=== PATIENT | female | born 1930 | race Caucasian/White ===

== ENCOUNTER 2019-05-08 13:11 | Observation (INO) | payer MEDICARE ==
--- NOTE | 2019-05-08 13:30 | ED ---
Neurological HPI - HPI Summary HPI Summary: 89 year old presents to the ED with a chief complaint of back pain starting 3 days ago. THIS IS A LEVEL 5 CAVEAT, PATIENT IS A POOR HISTORIAN. Per , patient has not been at baseline for the past 3 days. She has not been 100% alert or oriented, has not had a bowel movement, and has had back pain. Per EMS , patient had left sided weakness and facial droop. EMS gave patient aspirin but she refused NTG. Per EMS, O2 89 on arrival. Patient has a history of low blood pressure. No history of HLD or DM. Family history of cancer. - History of Current Complaint Stated Complaint: R/O STROKE R/O HEARTATTACK PER EMS Hx Obtained From: Patient, EMS Onset/Duration: Started days ago, Still Present Timing: Constant Neurological Deficit Location: Facial, LUE Character: Confusion Associated Signs and Symptoms: Positive: Confusion, Pain - back pain, AMS - confused - Allergy/Home Medications Allergies/Adverse Reactions: Allergies Allergy/AdvReac Type Severity Reaction Status Date / Time No Known Allergies Allergy Verified 05/08/19 14:01 Home Medications: Home Medications NK [No Home Medications Reported] 05/08/19 [History Confirmed 05/08/19] PMH/Surg Hx/FS Hx/Imm Hx Cardiovascular History: Reports: Hx Hypotension Review of Systems Positive: Other - No bm for 3 days Positive: Myalgia - back pain Positive: Weakness - left sided Positive: Other - confused All Other Systems Reviewed And Are Negative: No Physical Exam - Summary Physical Exam Summary: VITAL SIGNS: Reviewed. GENERAL: Patient is a thin female who is lying comfortable in the stretcher. Patient is not in any acute respiratory distress. She is alert but not oriented. She is unable to give history. HEAD AND FACE: No signs of trauma. No ecchymosis, hematomas or skull depressions. No sinus tenderness. EYES: PERRLA, EOMI x 2, No injected conjunctiva, no nystagmus. EARS: Hearing grossly intact. MOUTH: Oropharynx within normal limits. NECK: Supple, trachea is midline, no adenopathy, no JVD, no carotid bruit, no c- spine tenderness, neck with full ROM. CHEST: Symmetric, no tenderness at palpation LUNGS: Clear to auscultation bilaterally. decreased breath sounds CVS: Regular rate and rhythm, S1 and S2 present, no murmurs or gallops appreciated. ABDOMEN: Soft, non-tender. No signs of distention. No rebound no guarding. EXTREMITIES: FROM in all major joints, no edema, no cyanosis or clubbing. NEURO: Alert but not oriented. confusion. Does not follow commands SKIN: Dry and warm Triage Information Reviewed: Yes Vital Signs Reviewed: Yes Procedures - Sedation Patient Received Moderate/Deep Sedation with Procedure: No Diagnostics - Laboratory Result Diagrams: 05/08/19 13:30 05/08/19 13:29 Lab Statement: Any lab studies that have been ordered have been reviewed, and results considered in the medical decision making process. - Radiology CXR Radiology Interpretation Completed By: Radiologist Summary of Radiographic Findings: IMPRESSION: CARDIOMEGALY WITH INTERSTITIAL EDEMA. An ED physician has reviewed this report. - CT Brain CT CT Interpretation Completed By: Radiologist Summary of CT Findings: IMPRESSION: 1. NO ACUTE INTRACRANIAL PATHOLOGY. 2. DIFFUSE INVOLUTIONAL CHANGE WITH CHRONIC SMALL VESSEL ISCHEMIC CHANGES. 3. MILD SINUS MUCOSAL INFLAMMATORY DISEASE, WITH AN AIR-FLUID LEVEL IN THE LEFT MAXILLARY SINUS. IN THE CORRECT CLINICAL SETTING, THIS MAY REPRESENT ACUTE SINUSITIS. 4. LEFT MASTOID EFFUSION. An ED physician has reviewed this report. AP CT CT Interpretation Completed By: Radiologist Summary of CT Findings: ABDOMEN PELVIS IMPRESSION: 1. Negative for aneurysm or dissection of the abdominal aorta. Bilateral iliac artery stenoses as described. 2. The L1 vertebral body is remarkable for a probable acute or subacute mild anterior column compression fracture with cortical disruption and trabecular impaction. Negative for involvement of the middle column/spinal canal. An ED physician has reviewed this report. Chest CT CT Interpretation Completed By: Radiologist Summary of CT Findings: CHEST IMPRESSION: 1. Negative for aneurysm or dissection of the thoracic aorta. 2. Small bilateral dependent pleural effusions likely secondary to mild interstitial pulmonary edema. An ED physician has reviewed this report. - EKG 1344 Cardiac Rate: Bradycardia - 56 bpm EKG Rhythm: Sinus Bradycardia Summary of EKG Findings: EKG at 1344 shows sinus bradycardia at [address] elevations. Normal axis. An ED physician has reviewed and interpreted this EKG. NIH Scale - NIH Scale Level of Consciousness: Alert/Keenly Responsive Ask Patient the Month and His/Her Age: Neither Correct/Aphasic Ask Pt to Open/Close Eyes and Market Reporter/Release Non-Paretic Hand: Neither Correctly Best Gaze (Only Horizontal Eye Movement): Normal Visual Field Testing: No Visual Loss Facial Paresis-Pt to Smile & Close Eyes or Grimace Symmetry: Normal/Symmetrical Motor Function - Right Arm: No Drift-Holds 10 Seconds Motor Function - Left Arm: No Drift-Holds 10 Seconds Motor Function - Right Leg: No Drift-Holds 10 Seconds Motor Function - Left Leg: No Drift-Holds 10 Seconds Limb Ataxia-Must be out of Proportion to Weakness Present: Absent Sensory (Use Pinprick to Test Arms/Legs/Trunk/Face): Normal Best Language (Describe Picture, Name Items): Some Loss Dysarthria (Read Several Words): Normal Extinction and Inattention: No Abnormality Total Score: 5 Course/Dx - Course Assessment/Plan: 89 year old presents to the ED with a chief complaint of back pain starting 3 days ago. Per , patient has not been at baseline for the past 3 days. She has not been 100% alert or oriented, has not had a bowel movement, and has had back pain. Per EMS, patient had left sided weakness and facial droop. EMS gave patient aspirin but she refused NTG. Per EMS, O2 89 on arrival. Blood work without any significant abnormality except for glucose of 105, alkaline phosphatase is 105, troponin is 0.14. EKG shows a sinus bradycardia without any ST elevations, normal axis. Head CT impression: No acute pathology. Chest x-ray impression: Cardiomegaly with interstitial edema. Patient was given aspirin by EMS. At this time I discussed my physical exam and findings with Dr. Ba from the hospital services, who accepts the patient for admission. Urinalysis: positive for UTI - Differential Dx Differential Diagnoses Neuro: Positive: Carbon Monoxide Poisoning, Cerebrovascular Accident, Transient Ischemic Attack, Other - UTI - Diagnoses Provider Diagnoses: AMS (altered mental status), Elevated troponin I level, UTI (urinary tract infection) Is Visit Related: No - Physician Notifications Discussed Care Of Patient With: Gloria Ba - hospitalist Time Discussed With Above Provider: 15:03 Instructed by Provider To: Admit As Observation - I spoke to Dr. Ba who admits the patient for observation. Admit/Transition Orders Completed By ED Provider: Yes Discharge ED - Sign-Out/Discharge Documenting (check all that apply): Patient Departure - admit All imaging exams completed and their final reports reviewed: Yes - Discharge Plan Condition: Stable Disposition: ADMITTED TO [facility] - Billing Disposition and Condition Condition: STABLE Disposition: Admitted to [facility] - Attestation Statements Document Initiated by Scribe: Yes Documenting Scribe: Barber Cuevas Provider For Whom Huma is Documenting (Include Credential): Dieter Keene MD Scribe Attestation: Barber Longo, scribed for Dieter Keene MD on 05/08/19 at 2125. Scribe Documentation Reviewed: Yes Provider Attestation: The documentation as recorded by the scribeBarber accurately reflects the service I personally performed and the decisions made by me, Dieter Keene MD Status of Scribe Document: Viewed
[2019-05-08 13:41] LABS: ABS Lymphocytes 0.8 10^3/ul (1.0-4.8); ABS Monocytes 0.5 10^3/ul (0-0.8); ABS Neutrophils 5.6 10^3/ul (1.5-7.7); Eosinophil % 0.3 %; Hematocrit 44 % (35-47); Hemoglobin 14.6 g/dL (12.0-16.0); Lymphocyte % 11.3 %; Mean Corpuscular HGB Conc 34 g/dL (31-36); Mean Corpuscular Hemoglobin 33 pg (27-31); Mean Corpuscular Volume 97 fL (80-97); Mean Platelet Volume 8.7 fL (7.4-10.4); Platelet Count 282 10^3/uL (150-450); Red Blood Count 4.49 10^6 /uL (3.70-4.87); Red Cell Distribution Width 14 % (10-15)
[2019-05-08 13:47] LABS: INR 0.95 (0.82-1.09)
[2019-05-08 13:58] LABS: ALT 14 U/L (7-52); AST 25 U/L (13-39); Albumin 3.7 g/dL (3.2-5.2); Albumin/Globulin Ratio 1.3 (1-3); Alkaline Phosphatase 105 U/L (34-104); Anion Gap 6 mmol/L (2-11); BUN/Creatinine Ratio 21.3 (8-20); Blood Urea Nitrogen 17 mg/dL (6-24); CO2 Carbon Dioxide 26 mmol/L (22-32); Calcium 10.1 mg/dL (8.6-10.3); Chloride 105 mmol/L (101-111); Creatine Kinase 92 U/L (10-223); EGFR African American 82.1 (>60); EGFR Non-African American 67.8 (>60); Globulin 2.9 g/dL (2-4); Glucose 105 mg/dL (70-100); Magnesium 2.1 mg/dL (1.9-2.7); Potassium 4.2 mmol/L (3.5-5.0); Sodium 137 mmol/L (135-145); Total Protein 6.6 g/dL (6.4-8.9)
[2019-05-08 14:02] LABS: Troponin I 0.14 ng/mL (<0.03)
[2019-05-08 14:22] LABS: Acetaminophen < 15 mcg/mL; Alcohol < 10 mg/dL (<10)
[2019-05-08 14:37] LABS: TSH (Thyroid Stimulating Horm) 3.52 mcIU/mL (0.34-5.60)
[2019-05-08] MEDS ORDERED: Iohexol 350* (CONTRAST) 500 ML MDV IV ONE (15:55)
[2019-05-08] MEDS ORDERED: Ondansetron INJ* 2 MG/ML VIAL IV PRN (16:11)
[2019-05-08] MEDS ORDERED: Acetaminophen TAB* 325 MG PO PRN (16:11)
[2019-05-08] MEDS ORDERED: NS 0.9% 1000 ML** 1,000 ML IV SCH (16:15)
[2019-05-08] MEDS ORDERED: Enoxaparin(*) 40 MG/0.4 ML SYR SUBCUT SCH (17:00)
[2019-05-08 17:10] LABS: Cholesterol 186 mg/dL; HDL Cholesterol 38.6 mg/dL; LDL Cholesterol 122 mg/dL; Triglycerides 127 mg/dL
[2019-05-08 17:14] LABS: Troponin I 0.11 ng/mL (<0.03)
[2019-05-08 18:47] LABS: Urine Appearance Turbid; Urine Bilirubin Negative (Negative); Urine Blood 1+ (Negative); Urine Color Yellow; Urine Glucose Negative (Negative); Urine Ketones Negative (Negative); Urine Nitrite Positive (Negative); Urine Protein Negative (Negative); Urine Specific Gravity 1.045 (1.010-1.030); Urine Urobilinogen Negative (Negative)
[2019-05-08 18:55] LABS: Urine Bacteria 1+ (Absent); Urine Red Blood Cell 3+(>10/hpf) (Absent); Urine Squamous Epithelial Cell Present (Absent); Urine White Blood Cell 3+(>20/hpf) (Absent)
--- NOTE | 2019-05-08 20:05 | HP ---
ADDENDUM NOW INCLUDED ON THIS REPORT ADMISSION HISTORY AND PHYSICAL: DATE OF ADMISSION: 05/08/19 PROVIDER: Aurelia Hanley NP ATTENDING PHYSICIAN: Dr. Haile.* (DICTATED BY AURELIA HANLEY NP) PRIMARY CARE PROVIDER: Dr. Andrade in [place]. SURROGATE: Her , Shane Smith. CHIEF COMPLAINT: Back pain. HISTORY OF PRESENT ILLNESS: This is an 89-year-old female with a past medical history significant for dementia and AFib, who was brought to the emergency room on 05/08/19 via EMS due to the inability to get out of bed this a.m. This is a woman with advanced dementia who lives at home with her , who is her primary automatic clipper. He noticed that with movement 3 days ago, she would wince and grimace in pain, unable to verbalize exactly where her pain was, though has been able to walk around. Typically, when she is feeling well, she is able to walk without any assistive device, though does not walk much. Typically, she stays in her recliner chair for 12 to 14 hours a day watching TV. Her noticed that 2 nights ago she was crying in pain, which is unusual for her and then this morning she was unable to get out of bed or bear weight. When EMS was called, they thought that they noted a left-sided facial droop with weakness. Her NIH Stroke Score was 5 upon arrival. However, when asked, the stated that her face looks how it usually does and did not notice that there was anything different in her physical function, though he did note that she is not at her baseline mental capabilities for the past 3 days. He also noted that she has not had a bowel movement in at least 4 days. In the emergency room, chest x-ray and brain CT was done, labs were drawn. It was noted that she had an elevated troponin of 0.14. Hospitalists were asked to evaluate the patient for admission. PAST MEDICAL HISTORY: Dementia and what the believes to be AFib, though he was unsure and she has an implanted loop recorder. PAST SURGICAL HISTORY: None. MEDICATIONS: None. ALLERGIES: None. FAMILY HISTORY: Mother had cancer. Father had heart problems. SOCIAL HISTORY: No tobacco, EtOH, or recreational substance use. Is retired, was a former nurse. Is and has 1 son. REVIEW OF SYSTEMS: Unable to perform review of systems due to advanced dementia and inability to answer questions, though states she is normally incontinent of bowel and bladder. PHYSICAL EXAMINATION GENERAL: This is a thin, well-developed, older woman, who appears slightly unkempt, though in no acute distress. VITAL SIGNS: 98.3 Fahrenheit, pulse 62, resps 14, 98% oxygen on room air, and 155/69 blood pressure. HEENT: Conjunctivae pink and moist. PERRLA. EOMs intact. Oropharynx clear. Mucous membranes are moist, but lips are dry. NECK: Supple. RESPIRATORY: Lung sounds clear throughout, though diminished bilaterally on room air. CARDIAC: S1, S2 present. Heart rate irregular. No murmurs, gallops, or rubs appreciated. No lower extremity edema. ABDOMEN: Soft, nontender, nondistended with positive bowel sounds x4. MUSCULOSKELETAL: No clubbing or cyanosis of the digits. Noted atrophy to bilateral lower extremities. Cap refill less than 3 seconds. NEURO: Sensation intact to light touch. No focal deficits appreciated. Tongue midline. No facial asymmetry appreciated. PSYCH: Unable to determine orientation. SKIN: Buttocks are excoriated, red, blanching, but with no open areas. DIAGNOSTIC STUDIES/LAB DATA: Pertinent lab data: BUN/creatinine ratio 21.3, glucose 105, lactic acid 1.0. Total bilirubin 1.1, alkaline phosphatase 105. Ammonia 27. Troponin 0.14, total creatine kinase 92. TSH 3.52. Awaiting urinalysis. Diagnostic studies: Chest x-ray showed cardiomegaly with interstitial edema. Brain CT showed no acute intracranial pathology. Diffuse involutional change with chronic small vessel ischemic changes. Mild sinus mucosal inflammatory disease with an air-fluid level in the left maxillary sinus. In the correct clinical setting, this may represent acute sinusitis and left mastoid effusion. EKG shows sinus bradycardia with bigeminy and T-wave inversions in V1 and V2. No ST elevations or depressions. ASSESSMENT AND PLAN: My impression is that this is an 89-year-old female with a past medical history significant for dementia and atrial fibrillation, who was admitted on 05/08/19 for elevated troponins. 1. Elevated troponins. The patient is unable to verbalize any chest pain or other discomfort, is not diaphoretic. Vital signs have been stable. Heart rate in the 50s to 60s and blood pressures have been labile between one teens and 160. We will trend the troponins every 3 hours until they trend down. EKG noted sinus bigeminy. We will recheck another EKG. We will check CTA of neck, chest and abdomen to look for possible aortic dissection or pulmonary embolism. We will draw lipids and hemoglobin A1c, and depending on results of CTA, we will possibly consult Cardiology. 2. Dementia. The patient is not on any medications. Continue supportive care. We will order PT and OT consults. It is possible that the patient may need some subacute rehab placement. I am somewhat concerned about the advanced level of her dementia and the fact that she sits in her chair for the majority of the day. I will ask that Social Work will see the patient in case there are any other interventions that we can put in place to support the patient. 3. DVT prophylaxis: Initiate Lovenox. 4. Code status is DNR. 5. The disposition is to admit OBV to [address] [place] [address]. 6. Condition is guarded. TIME SPENT: Time spent on the patient is about 60 minutes with half of that spent [id number]. AURELIA HANLEY NP ADDENDUM: The case was reviewed and discussed with Aurelia Hanley NP. Mrs. Smith is an 89-year-old female with a past medical history of dementia and by her due to increased confusion and weakness. The patient is a poor historian and the also has difficulty communicating her clinical feature. He states that she has not been herself for the past 3 days and he thought may be she had back pain. In the emergency room, she had stable vital signs. Laboratory testing revealed a troponin of 0.14. There was some question by EMS of ST elevations on EKG, but those were not confirmed on our ED and the patient was not complaining of chest pain. She will be admitted to the medical floor under the impression of altered mental status and elevated troponin of unclear etiology for further workup. She will have a CT of chest, abdomen and pelvis to rule out PE or dissection is the source of her troponin elevation. She will be monitored on telemetry. We will check serial troponins. There is no evidence of infection at this time. There is concern for the patient's capacity to stay at home at this time. Her appears to be experienced caregiver burnout as he is the only automatic clipper at home. Although, she has no skin breakdown, she does have significant redness on her buttocks and it is described that she spends 12 to 14 hours a day on the chair. A social services technician/case management consultation will be requested that the patient may subacute rehab placement. Dr. Haile [id number]/CPS #: [id number]/CPS #: [id number] HARISH
--- NOTE | 2019-05-08 20:29 | HP ---
HISTORY AND PHYSICAL: ADDENDUM: The case was reviewed and discussed with Aurelia Hanley NP. Mrs. Smith is an 89-year-old female with a past medical history of dementia and by her due to increased confusion and weakness. The patient is a poor historian and the also has difficulty communicating her clinical feature. He states that she has not been herself for the past 3 days and he thought may be she had back pain. In the emergency room, she had stable vital signs. Laboratory testing revealed a troponin of 0.14. There was some question by EMS of ST elevations on EKG, but those were not confirmed on our ED and the patient was not complaining of chest pain. She will be admitted to the medical floor under the impression of altered mental status and elevated troponin of unclear etiology for further workup. She will have a CT of chest, abdomen and pelvis to rule out PE or dissection is the source of her troponin elevation. She will be monitored on telemetry. We will check serial troponins. There is no evidence of infection at this time. There is concern for the patient's capacity to stay at home at this time. Her appears to be experienced caregiver burnout as he is the only patient access specialist at home. Although, she has no skin breakdown, she does have significant redness on her buttocks and it is described that she spends 12 to 14 hours a day on the chair. A social media marketing manager/case management consultation will be requested that the patient may subacute rehab placement. [id number]/[facility] #: [id number] HARISH
[2019-05-08] MEDS: Senna TAB 8.6 mg* TAB PO SCH (20:52)
[2019-05-08] MEDS ORDERED: cefTRIAXone(*) 1 GM in NS 0.9% 50 ML* 50 ML IVPB ONE (21:23)
[2019-05-09 06:08] LABS: ABS Eosinophils 0.1 10^3/ul (0-0.6); ABS Monocytes 0.6 10^3/ul (0-0.8); ABS Neutrophils 2.8 10^3/ul (1.5-7.7); Eosinophil % 1.6 %; Hematocrit 38 % (35-47); Hemoglobin 12.8 g/dL (12.0-16.0); Lymphocyte % 22.3 %; Mean Corpuscular HGB Conc 34 g/dL (31-36); Mean Corpuscular Hemoglobin 33 pg (27-31); Mean Corpuscular Volume 97 fL (80-97); Mean Platelet Volume 8.6 fL (7.4-10.4); Platelet Count 250 10^3/uL (150-450); Red Blood Count 3.89 10^6 /uL (3.70-4.87); Red Cell Distribution Width 13 % (10-15); White Blood Count 4.6 10^3/uL (3.5-10.8)
[2019-05-09 06:25] LABS: BUN/Creatinine Ratio 19.2 (8-20); Calcium 9.2 mg/dL (8.6-10.3); EGFR African American 91.2 (>60); EGFR Non-African American 75.4 (>60); Potassium 3.7 mmol/L (3.5-5.0)
[2019-05-09] MEDS: Senna TAB 8.6 mg* TAB PO SCH ×2 (08:35→21:05)
[2019-05-09 10:04] LABS: Troponin I 0.12 ng/mL (<0.03)
[2019-05-09] MEDS: Acetaminophen TAB* 325 MG PO SCH ×2 (13:39→21:07)
[2019-05-09] MEDS ORDERED: Atorvastatin* 40 MG TAB PO SCH (17:00)
[2019-05-09] MEDS ORDERED: Enoxaparin(*) 30 MG/0.3 ML SYR SUBCUT SCH (17:00)
--- NOTE | 2019-05-09 17:15 | PN ---
Subjective Date of Service: 05/09/19 Interval History: Margarette was unable to provide any history or even answer yes/no questions appropriately for me. When I came back to see her when her arrived, she was able to communicate better with him and he tells me that she expressed ongoing back pain to him. Objective Active Medications: Acetaminophen (Tylenol Tab*) 975 mg PO Q8H [facility] Last Admin: 05/09/19 13:39 Dose: 975 mg Atorvastatin Calcium (Lipitor*) 40 mg PO 1700 [facility] Last Admin: 05/09/19 16:20 Dose: 40 mg Enoxaparin Sodium (Lovenox(*)) 30 mg SUBCUT Q24H [facility] Last Admin: 05/09/19 16:20 Dose: 30 mg Ondansetron HCl (Zofran Inj*) 4 mg IV Q4H PRN PRN Reason: NAUSEA/VOMITING Senna (Senokot 8.6 Mg Tab*) 1 tab PO BID [facility] Last Admin: 05/09/19 08:35 Dose: 1 tab Vital Signs - 8 hr 05/09/19 05/09/19 11:00 15:00 Temperature 99.2 F 97.4 F Pulse Rate 57 59 Respiratory 20 18 Rate Blood Pressure 109/49 128/50 (mmHg) O2 Sat by Pulse 99 97 Oximetry Oxygen Devices in Use Now: None Appearance: alert, no distress, resting comfortably in bed, makes good eye contact but answers questions with garbled inaccurate speech Eyes: No Scleral Icterus Ears/Nose/Mouth/Throat: NL Teeth, Lips, Gums Neck: NL Appearance and Movements; NL JVP Respiratory: Symmetrical Chest Expansion and Respiratory Effort, Clear to Auscultation Cardiovascular: NL Sounds; No Murmurs; No JVD, RRR Abdominal: NL Sounds; No Tenderness; No Distention Lymphatic: No Cervical Adenopathy Extremities: No Edema Skin: No Rash or Ulcers Neurological: - - does not follow commands for neuro exam, but is able to voluntarily move both legs spontaneously - Nutrition: Malnutrition Diagnosis/Plan Malnutrition Assessment by Registered Dietitian: Malnutrition Assessment Clinical Characteristics Chronic,Moderate Malnutrition Assessment: -CBW is 88#. reports UBW is under 100#, Criteria does not know a recent wt but typically 90-95#. Period of time of wt change unknown, but possible 7# wt loss is significant (7.4% BW). -Muscle loss noted on visual assessment of clavicles. Malnutrition Assessment: Ensure vanilla (350 kcals, 20g pro) Interventions Malnutrition Assessment: Goals 1. adequate intake to support hydration and lean body mass without further wt loss 2. maintain serum electrolytes WNL 3. regulation of bowel pattern; no c/o constipation (or diarrhea) Result Diagrams: 05/09/19 05:55 05/09/19 05:55 Assess/Plan/Problems-Billing Assessment: This is an 89 year old woman with history of ?afib with a possible heart block as described by her , for which a pacemaker has been offered but they declined, and dementia who presented 05/08 with several days of back pain as conveyed by her (patient unable to provide history) and is found to have an L1 compression fracture - Patient Problems (1) Compression fracture of L1 lumbar vertebra Current Visit: Yes Status: Acute Code(s): S32.010A - WEDGE COMPRESSION FRACTURE OF FIRST LUMBAR VERTEBRA, INIT SNOMED Code(s): 187729594 Comment: no evidence of cord invovlement on imaging or clinically will start standing tylenol for pain control appreciate PT input (2) Dementia Current Visit: Yes Status: Acute Code(s): F03.90 - UNSPECIFIED DEMENTIA WITHOUT BEHAVIORAL DISTURBANCE SNOMED Code(s): 03608471 Comment: her is her labor operator and has no help at home, but feels confident and seems competent he desires minimal interventions and a focus on comfort for Margarette (3) Elevated troponin Current Visit: Yes Status: Acute Code(s): R79.89 - OTHER SPECIFIED ABNORMAL FINDINGS OF BLOOD CHEMISTRY SNOMED Code(s): 994670009 Comment: I discussed this with Margarette's . He understands that this could mean stress on her heart and that we could pursue an ischemic evaluation but has no interest in this and again prefers to keep her comfortable and focus on her quality of life. Status and Disposition: may need STR vs. home with PT
[2019-05-10] MEDS: Acetaminophen TAB* 325 MG PO SCH (05:40)
[2019-05-10] MEDS: Senna TAB 8.6 mg* TAB PO SCH (09:36)
[2019-05-10 11:32] VITALS: BP 103/54
--- NOTE | 2019-05-10 15:39 | DS ---
CC: Dr. Andrade [place] * DISCHARGE SUMMARY: DATE OF ADMISSION: 05/08/19 DATE OF DISCHARGE: 05/10/19 PRIMARY CARE PROVIDER: Dr. Andrade in [place]. PRINCIPAL DISCHARGE DIAGNOSES: 1. L1 compression fracture. 2. Urinary tract infection. SECONDARY DISCHARGE DIAGNOSIS: Dementia. MEDICATIONS FOR DISCHARGE: 1. Tylenol 975 mg q.8 for 3 more days and then as needed. 2. Nitrofurantoin 100 mg b.i.d. for 5 days. PHYSICAL EXAM AT DISCHARGE: Temperature 97.5, heart rate 57, respiratory rate 16, pulse ox 100% on room air, blood pressure 103/54. General: Alert, elderly appearing female, resting comfortably, in no distress. She acknowledges my presence when I enter the room, but does not respond with any appropriate greeting or answers to my questions and also responds inappropriately to yes/no questions. HEENT: Pupils equal, round, and reactive to light. Oral mucosa is moist. Neck: No JVP. No adenopathy. Chest: She is in a regular rate and rhythm with no murmurs. Her lungs are clear bilaterally. Abdomen: Soft, nontender, nondistended. No edema, rashes, or ulcers on her extremities. Neurologic: She does not follow simple commands. She does not answer questions and mostly responds with a stare and questions she does answer are unintelligible. HOSPITAL COURSE BY PROBLEM: 1. L1 compression fracture. Ms. Smith initially presented with back pain for at least several days. The history was obtained from as she is unable to communicate a history of present illness. Due to the vague nature of her symptoms, a chest, abdomen and pelvis CTA was obtained, which did not show any vascular phenomenon, but did show an L1 compression fracture and this coincided with the location of her pain. She was treated conservatively with standing Tylenol and physical therapy and she improved drastically with Tylenol , and Physical Therapy thought she was safe to go home with her where she has been living and has done quite well. Case Management is arranging for home PT, home nursing and medical social work to help her and her manage at home. 2. UTI. Her dementia was slightly worse than usual, which probably is multifactorial, but may be partially attributed to a UTI in combination with pain and hospitalization. I am treating her with Macrobid. 3. Dementia. Ms. Smith has marked dementia and her cares for her well at home. He is very much interested in comfort and quality of life and will benefit from some home services as arranged by Case Management. 4. Elevated troponin. Ms. Smith was incidentally found to have elevated troponin at the time of admission. Her CTA was negative for PE as above. I discussed this finding with her and explained that we could pursue an ischemic workup, but he is very much interested in not pursuing any further workup and minimizing any tests or treatments that she has and understands that this could imply heart disease or stress to her heart on this admission, but is not interested in any further workup. CONDITION AT THE TIME OF DISCHARGE: Stable. DISPOSITION: Margarette is being discharged with her on 05/10/19 with home services being arranged by Case Management. FOLLOWUP: She will follow up with her primary care physician within 1 week. [id number]/[facility] #: [id number] HARISH
== END 2019-05-10 13:45 | disposition home or self-care (01) ==
LOC: ED 13:11 → MEDTELE 15:16
PROVIDERS: ADMIT Internal Medicine; ATTEND Internal Medicine
DX: M48.56XA Collapsed vertebra, not elsewhere classified, lumbar region, initial encounter for fracture (principal); N39.0 Urinary tract infection, site not specified; M54.9 Dorsalgia, unspecified; F03.90 Unspecified dementia, unspecified severity, without behavioral disturbance, psychotic disturbance, mood disturbance, and anxiety; I48.91 Unspecified atrial fibrillation; Z66 Do not resuscitate; R79.89 Other specified abnormal findings of blood chemistry; Z79.899 Other long term (current) drug therapy
CPT/HCPCS: 36415; 70450; 71045; 71275; 74174; 80048; 80053; 80061; 80320; 80329; 81003; 81015; 82140; 82550; 83036; 83605; 83735; 84443; 84484; 85025; 85610; 87077; 87086; 87186; 93005; 96365; 96372; 99285; A9270-GY; G0378; G0480; J0696; J1650; Q9967